=== PATIENT | male | born 1970 | race Caucasian/White ===

== ENCOUNTER → 2022-02-07 | Outpatient (CLI) | payer OTHER ==
[~2022-02-07] MED LIST: ALPRAZOLAM0.5 MG PO; ARTANE 2MG TABLE2 MG PO; ASPIRIN 325MG325 MG PO; ATORVASTATIN CA80 MG PO; CLARITIN10 MG PO; FENOFIBRATE160 MG PO; FEOSOL325 MG PO; GABAPENTIN600 MG PO; GLUCOPHAGE500 MG PO; HUMULIN R U INJ; IBUPROFEN800 MG PO; JARDIANCE25 MG PO; LIDOCAINE TD; LOPRESSOR 25 MG25 MG PO; MIRAPEX0.25 MG PO; NORCO 10-325 T1 EACH PO; OMEGA 3 1,0001 EACH PO; OMEPRAZOLE20 M2 PO; OZEMPIC0.25 MG/0. SQ; PRILOCAINE TD; SEROQUEL XR150 MG PO; TORADOL 10 MG T10 MG PO; VIRT-CAPS PO; VISTARIL25 MG PO; VITAMIN D5000 UNIT PO; ZANAFLEX4 MG PO
== END ==
LOC: MRI 15:00
DX: H49.20 Sixth [abducent] nerve palsy, unspecified eye (principal); H53.2 Diplopia
CPT/HCPCS: 36415; 70553; 82565; 84520; A9577